=== PATIENT | female | born 1990 | race Caucasian/White ===

== ENCOUNTER 2017-09-11 15:56 | Emergency (ER) | payer MEDICAID ==
[~2017-09-11] VITALS: Ht 157.5 cm; Wt 61.8 kg
[2017-09-11 16:26] VITALS: BP 123/84; PULSE 82; RESP 16; TEMP 98.6; O2SAT 100
[2017-09-11] MEDS ORDERED: SODIUM CHLOR 0.9% 1000 ML INJ 1,000 ML IV SCH ×2 (19:29→20:15)
[2017-09-11] MEDS ORDERED: SODIUM CHLORIDE 0.9% FLUSH 10 ML FLUSH IV FLUSH PRN (19:30)
[2017-09-11 19:34] LABS: BLOOD, URINE LARGE (NEG); GLUCOSE,URINE NEG (NEG); KETONE, URINE 40 mg/dL (NEG); NITRITE,URINE NEG (NEG)
[2017-09-11 19:42] LABS: AUTOMATED NEUTROPHIL # 7.3 TH/MM3 (1.8-7.7); BASOPHIL # 0.1 TH/MM3 (0-0.2); BASOPHIL % 0.6 % (0.0-2.0); EOSINOPHIL # 0.1 TH/MM3 (0-0.4); EOSINOPHIL % 0.8 % (0.0-4.0); HEMATOCRIT 36.4 % (35.0-46.0); HEMO FLAGS DIFF FINAL; LYMPH % 15.3 % (9.0-44.0); LYMPHOCYTE # 1.4 TH/MM3 (1.0-4.8); MEAN CELL VOLUME 84.2 FL (80.0-100.0); MEAN CORPUSCULAR HEMOGLOBIN 27.7 PG (27.0-34.0); MEAN CORPUSCULAR HGB CONC 32.9 % (32.0-36.0); MONO % 3.9 % (0.0-8.0); NEUT % 79.4 % (16.0-70.0); PLATELET COUNT 219 TH/MM3 (150-450); RED BLOOD COUNT 4.33 MIL/MM3 (4.00-5.30); RED CELL DISTRIBUTION WIDTH 11.5 % (11.6-17.2); WHITE BLOOD COUNT 9.3 TH/MM3 (4.0-11.0)
[2017-09-11 19:44] LABS: METHOD OF COLLECTION VOIDED; URINE COLOR YELLOW (YELLW/STRAW)
[2017-09-11 19:45] LABS: BACTERIA, URINE RARE /hpf; COMMENT (UR) CULT NOT INDICATED; CULTURE IF INDICATED CULT NOT INDICATED; RBC, URINE 100-200 /hpf (0-3); WBC, URINE 0-2 /hpf (0-5)
[2017-09-11 19:50] LABS: CHLORIDE 104 MEQ/L (98-107); POTASSIUM 3.2 MEQ/L (3.5-5.1); SODIUM (NA) 137 MEQ/L (136-145)
[2017-09-11 19:54] LABS: ANION GAP 6 MEQ/L (5-15); BICARBONATE 26.6 MEQ/L (21.0-32.0); BLOOD UREA NITROGEN 10 MG/DL (7-18)
[2017-09-11 19:57] LABS: ALT (GPT) 19 U/L (10-53); AST (GOT) 9 U/L (15-37); GLOMERULAR FILTRATION RATE 112 ML/MIN (>89)
[2017-09-11 19:58] LABS: TOTAL BILIRUBIN ADULT 0.6 MG/DL (0.2-1.0)
[2017-09-11 19:59] LABS: ALKALINE PHOSPHATASE 64 U/L (45-117)
[2017-09-11] MEDS ORDERED: ACETAMINOPHEN 500 MG CPLT PO ONE (20:00)
[2017-09-11 20:02] LABS: BETA HCG QUANT 75 MIU/ML (0-5)
--- NOTE | 2017-09-11 22:00 | RADRPT ---
EXAM DATE/TIME: 09/11/2017 21:01 [facility] COMPARISON: No previous studies available for comparison. INDICATIONS : Pelvic bleeding and pain. LAB(S): Beta-hC MEDICAL HISTORY : . SURGICAL HISTORY : Appendectomy. ENCOUNTER: Initial ACUITY: 2 days PAIN SCORE: 7/10 LOCATION: Bilateral pelvis MEASUREMENTS: UTERUS: 8.6 x 5.0 x 4.2 cm ENDOMETRIAL STRIPE: 8 mm RIGHT OVARY: 2.7 x 2.6 x 1.9 cm LEFT OVARY: 1.6 x 1.7 x 2.2 cm FREE FLUID: Yes posterior cul de sac and bilateral adnexas FINDINGS: No definite intrauterine identified. Elongated hypoechoic area within the endometrium measu ring 1.7 x 0.3 x 1.2 cm, probably complex fluid. There is [id number] free fluid in the pelvis o f unknown etiology. No adnexal mass. CONCLUSION: 1. No intrauterine identified sonographically. Small amount of complex fluid in the endomet rial cavity. Mild to moderate free fluid in the pelvis of unknown etiology. Richie Pringle MD on September 11, 2017 at 21:55 Board Certified Radiologist. This report was verified electronically.
[2017-09-11 22:02] VITALS: BP 123/61; PULSE 86; RESP 16; O2SAT 97
--- NOTE | 2017-09-11 22:02 | PD ---
HPI Chief Complaint: Related Problem Time Seen by Provider: 19:08 Travel History International Travel<30 days: No Contact w/Intl Traveler<30days: No Traveled to known affect area: No History of Present Illness HPI Patient is a 26-year-old female presents emergency department approximately 2 to 4 weeks by last menstrual period for evaluation of vaginal spotting. Patient denies any abdominal pain nausea vomiting diarrhea vaginal discharge. States symptoms are mild but she is concerned that she might have a miscarriage. She is . No problems in her previous pregnancies. No other physical complaints at this time. PFSH Past Medical History Medical History: Denies Significant Hx Diminished Hearing: No Tetanus Vaccination: > 5 Years Influenza Vaccination: No ?: LMP: 08/12/17 : 5 Para: 4 Miscarriage: 0 : 0 Past Surgical History Appendectomy: Yes Social History Alcohol Use: No Tobacco Use: No Substance Use: No Allergies-Medications (Allergen,Severity, Reaction): Coded Allergies: No Known Allergies (Unverified , 09/11/17) Reported Meds & Prescriptions Reported Meds & Active Scripts Active No Active Prescriptions or Reported Medications Review of Systems Except as stated in HPI: all other systems reviewed are Neg Physical Exam Narrative GENERAL: Well-developed well-nourished distress SKIN: Focused skin assessment warm/dry. HEAD: Atraumatic. Normocephalic. EYES: Pupils equal and round. No scleral icterus. No injection or drainage. ENT: No nasal bleeding or discharge. Mucous membranes pink and moist. NECK: Trachea midline. No JVD. CARDIOVASCULAR: Regular rate and rhythm. No murmur appreciated. RESPIRATORY: No accessory muscle use. Clear to auscultation. Breath sounds equal bilaterally. GASTROINTESTINAL: Abdomen soft, non-tender, nondistended. Hepatic and splenic margins not palpable. Genitourinary: Exam performed with female nurse outside sales account executive present all times, scant blood in vaginal vault, cervix closed, no bimanual tenderness. No lesions seen. MUSCULOSKELETAL: No obvious deformities. No clubbing. No cyanosis. No edema. NEUROLOGICAL: Awake and alert. No obvious cranial nerve deficits. Motor grossly within normal limits. Normal speech. PSYCHIATRIC: Appropriate mood and affect; insight and judgment normal. Data Data Last Documented VS Vital Signs Date Time Temp Pulse Resp B/P (MAP) Pulse Ox O2 Delivery O2 Flow Rate FiO2 09/11/17 22:02 86 16 123/61 (81) 97 Room Air 09/11/17 16:26 98.6 Orders Orders Urinalysis - C+S If Indicated (09/11/17 19:09) Ed Urine Pregnancytest Poc (09/11/17 19:09) Beta Hcg (Quant/Titer) (09/11/17 19:29) Complete Blood Count With Diff (09/11/17 19:29) Comprehensive Metabolic Panel (09/11/17 19:29) Iv Access Insert/Monitor (09/11/17 19:29) Ecg Monitoring (09/11/17 19:29) Oximetry (09/11/17 19:29) Sodium Chloride 0.9% Flush (Ns Flush) (09/11/17 19:30) Ed Poc Ultrasound (09/11/17 19:29) Abo/Rh Blood Type (09/11/17 19:29) Acetaminophen (Tylenol) (09/11/17 20:00) Sodium Chlor 0.9% 1000 Ml Inj (Ns 1000 M (09/11/17 20:15) Us Pelvis (Ques Pr/Ect)W Trans (09/11/17 ) Ed Discharge Order (09/11/17 22:02) Labs Laboratory Tests Test 09/11/17 19:17 09/11/17 19:32 Urine Collection Type VOIDED Urine Color YELLOW Urine Turbidity HAZY Urine pH 6.0 Urine Specific [place] 1.028 Urine Protein TRACE mg/dL Urine Glucose (UA) NEG mg/dL Urine Ketones 40 mg/dL Urine Occult Blood LARGE Urine Nitrite NEG Urine Bilirubin NEG Urine Leukocyte Esterase NEG Urine RBC 100-200 /hpf Urine WBC 0-2 /hpf Urine Bacteria RARE /hpf Microscopic Urinalysis Comment CULT NOT INDICATED Urine Collection Time 1916 White Blood Count 9.3 TH/MM3 Red Blood Count 4.33 MIL/MM3 Hemoglobin 12.0 GM/DL Hematocrit 36.4 % Mean Corpuscular Volume 84.2 FL Mean Corpuscular Hemoglobin 27.7 PG Mean Corpuscular Hemoglobin Concent 32.9 % Red Cell Distribution Width 11.5 % Platelet Count 219 TH/MM3 Mean Platelet Volume 8.4 FL Neutrophils (%) (Auto) 79.4 % Lymphocytes (%) (Auto) 15.3 % Monocytes (%) (Auto) 3.9 % Eosinophils (%) (Auto) 0.8 % Basophils (%) (Auto) 0.6 % Neutrophils # (Auto) 7.3 TH/MM3 Lymphocytes # (Auto) 1.4 TH/MM3 Monocytes # (Auto) 0.4 TH/MM3 Eosinophils # (Auto) 0.1 TH/MM3 Basophils # (Auto) 0.1 TH/MM3 CBC Comment DIFF FINAL Differential Comment Blood Urea Nitrogen 10 MG/DL Creatinine 0.65 MG/DL Random Glucose 93 MG/DL Total Protein 7.9 GM/DL Albumin 4.3 GM/DL Calcium Level 8.7 MG/DL Alkaline Phosphatase 64 U/L Aspartate Amino Transf (AST/SGOT) 9 U/L Alanine Aminotransferase (ALT/SGPT) 19 U/L Total Bilirubin 0.6 MG/DL Sodium Level 137 MEQ/L Potassium Level 3.2 MEQ/L Chloride Level 104 MEQ/L Carbon Dioxide Level 26.6 MEQ/L Anion Gap 6 MEQ/L Estimat Glomerular Filtration Rate 112 ML/MIN Human Chorionic Gonadotropin, Quant 75 MIU/ML MDM Medical Decision Making Medical Screen Exam Complete: Yes Emergency Medical Condition: Yes Differential Diagnosis Vaginal bleeding and , threatened miscarriage, ectopic unlikely, Narrative Course Last 24 hours Impressions Pelvis Ultrasound 09/11/17 0000 Signed Impressions: Service Date/Time: Monday, September 11, 2017 21:01 - CONCLUSION: 1. No intrauterine identified sonographically. Small amount of complex fluid in the endometrial cavity. Mild to moderate free fluid in the pelvis of unknown etiology. Richie Pringle MD Patient roomed in emergency department, Rh+, hCG is too low to visualize at this time, she has a benign abdomen and my index suspicion for ectopic is exceedingly low. Recommended follow-up with emergency department 48 hours for repeat blood testing. Procedures Procedure Narrative With care ultrasound: Transabdominal views obtained of the uterus showing moderate free fluid in the pelvis, and no visualized . Official ultrasound is been ordered. Diagnosis Primary Impression: Vaginal bleeding affecting early Additional Instructions: Recommend return to ER in 48 hours for repeat blood work and exam. Sooner if you have pain. Scripts No Active Prescriptions or Reported Meds Disposition: 01 DISCHARGE HOME Condition: Stable Juan Garcia MD Sep 11, 2017 22:02
== END 2017-09-11 22:31 | disposition home or self-care (01) ==
LOC: PHED 15:56
DX: O46.91 Antepartum hemorrhage, unspecified, first trimester (principal); Z3A.00 Weeks of gestation of pregnancy not specified
CPT/HCPCS: 76700; 76817; 80053; 81001; 84702; 84703; 85025; 86900; 86901; 96360; 99285; J7030

== ENCOUNTER 2017-09-15 15:05 | Emergency (ER) | payer MEDICAID ==
[~2017-09-15] VITALS: Ht 157.5 cm; Wt 62.4 kg
[2017-09-15 15:10] VITALS: BP 120/56; PULSE 88; RESP 16; TEMP 98.3; O2SAT 98
--- NOTE | 2017-09-15 16:41 | PD ---
HPI Chief Complaint: Related Problem Time Seen by Provider: 16:25 Travel History International Travel<30 days: No Contact w/Intl Traveler<30days: No Traveled to known affect area: No History of Present Illness HPI 26yo F with no PMH presents to the ED for repeat bHCG. Pt was seen here at [facility] on 09/11/17 and her bHCG was 75. She had US that showed no IUP. Pt said that she no longer has any abdominal cramping or pain but is still having vaginal bleeding. Vaginal bleeding has decreased in amount. Denies any fever, chest pain, sob, n/v, abdominal pain, dysuria, vaginal discharge, focal weakness or numbness. LMP 08/11/17. Pt's blood type was O+ and rhogam was not needed. PFSH Past Medical History Diminished Hearing: No ?: : 5 Para: 4 Miscarriage: 0 : 0 Past Surgical History Appendectomy: Yes Social History Alcohol Use: No Tobacco Use: No Substance Use: No Allergies-Medications (Allergen,Severity, Reaction): Coded Allergies: No Known Allergies (Unverified , 09/15/17) Reported Meds & Prescriptions Reported Meds & Active Scripts Active No Active Prescriptions or Reported Medications Review of Systems Except as stated in HPI: all other systems reviewed are Neg Physical Exam Narrative GENERAL: 26yo F not in distress. SKIN: Focused skin assessment warm/dry. HEAD: Atraumatic. Normocephalic. CARDIOVASCULAR: Regular rate and rhythm. No murmur appreciated. RESPIRATORY: No accessory muscle use. Clear to auscultation. Breath sounds equal bilaterally. GASTROINTESTINAL: Abdomen soft, non-tender, nondistended. No rebound tenderness or guarding. PELVIC: Small amount of old blood in vaginal vault. Cervical os closed. No CMT or adnexal tenderness bilaterally. No vaginal discharge. MUSCULOSKELETAL: No obvious deformities. No clubbing. No cyanosis. No edema. NEUROLOGICAL: Awake and alert. No obvious cranial nerve deficits. Motor grossly within normal limits. Normal speech. PSYCHIATRIC: Appropriate mood and affect; insight and judgment normal. Data Data Last Documented VS Vital Signs Date Time Temp Pulse Resp B/P (MAP) Pulse Ox O2 Delivery O2 Flow Rate FiO2 09/15/17 15:10 98.3 88 16 120/56 (77) 98 Orders Orders Beta Hcg (Quant/Titer) (09/15/17 15:59) Labs Laboratory Tests Test 09/15/17 16:20 Human Chorionic Gonadotropin, Quant 43 MIU/ML MDM Medical Decision Making Medical Screen Exam Complete: Yes Emergency Medical Condition: Yes Differential Diagnosis Threatened vs. incomplete vs. complete Narrative Course 26yo F here for repeat bHCG. She was seen here on 09/11 and bHCG was 75. Today bHCG has trend down to 43. Cervical os is closed. No abdominal pain. Vital signs stable. Will have pt follow up with OBGYN as outpatient. Return precautions given. Diagnosis Primary Impression: Vaginal bleeding Patient Instructions: General Instructions Departure Forms: Tests/Procedures Additional Instructions: Please follow up with an OBGYN for repeat bHCG to see if it continues to trend down and become negative or return to the ED if symptoms worsen. Med/Other Pt SpecificInfo: No Change to Meds Scripts No Active Prescriptions or Reported Meds Disposition: 01 DISCHARGE HOME Condition: Stable Cynthia Ladd DO Sep 15, 2017 16:41
[2017-09-15 16:48] LABS: BETA HCG QUANT 43 MIU/ML (0-5)
[2017-09-15 17:45] VITALS: BP 122/71; PULSE 78; RESP 16; O2SAT 99
== END 2017-09-15 19:03 | disposition home or self-care (01) ==
LOC: PHED 15:05
DX: N93.9 Abnormal uterine and vaginal bleeding, unspecified (principal)
CPT/HCPCS: 84702; 99283

== ENCOUNTER 2017-09-28 16:05 | Emergency (ER) | payer OTHER, MEDICAID ==
[~2017-09-28] VITALS: Ht 157.5 cm; Wt 62.0 kg
[2017-09-28 16:20] VITALS: BP 160/70; PULSE 110; RESP 18; TEMP 98.8; O2SAT 99
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
[2017-09-28] MEDS ORDERED: ACETAMINOPHEN/HYDROcodone 325 MG/5 MG TAB PO ONE (17:45)
[2017-09-28 18:54] VITALS: RESP 17
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
[2017-09-28] MEDS ORDERED: CYCL10TA PO (20:52)
[2017-09-28] MEDS ORDERED: IBUP1TAB7 PO (20:52)
== END 2017-09-28 21:00 | disposition home or self-care (01) ==
LOC: PHEFT 16:05
DX: S16.1XXA Strain of muscle, fascia and tendon at neck level, initial encounter (principal); M79.1 Myalgia; R20.0 Anesthesia of skin; R20.2 Paresthesia of skin; V43.52XA Car driver injured in collision with other type car in traffic accident, initial encounter
CPT/HCPCS: 72125; 72128; 72131; 84703; 99285

== ENCOUNTER 2017-11-14 04:32 | Emergency (ER) | payer MEDICAID ==
[~2017-11-14] VITALS: Ht 157.5 cm; Wt 63.5 kg
[~2017-11-14 04:32] MED LIST: CYCL10TA PO; IBUP1TAB7 PO
[2017-11-14 04:35] VITALS: BP 107/66; PULSE 83; RESP 18; TEMP 98.2; O2SAT 96
[2017-11-14 04:47] VITALS: BP 107/66; PULSE 83; RESP 16; TEMP 98.2; O2SAT 96
[2017-11-14] MEDS ORDERED: traMADol HCL 50 MG TAB PO ONE (05:15)
[2017-11-14] MEDS ORDERED: TRAM50TA PO (06:15)
[2017-11-14] MEDS ORDERED: PENI500T PO (06:15)
--- NOTE | 2017-11-14 06:15 | PD ---
HPI Chief Complaint: Oral / Dental Pain or Problem Time Seen by Provider: 05:02 Travel History International Travel<30 days: No Contact w/Intl Traveler<30days: No Traveled to known affect area: No History of Present Illness HPI Patient is a 27-year-old female comes in complaining of tooth pain. She says for 3 days, but is getting worse. She says the right side of her head is now hurting. She is chills. She denies any difficulty swallowing. She has tried Tylenol and ibuprofen without relief of her symptoms. Severity is mild. PFSH Past Medical History Medical History: Denies Significant Hx Diminished Hearing: No Immunizations Current: Yes Influenza Vaccination: Yes ?: Not LMP: 11/12/17 : 5 Para: 4 Miscarriage: 1 : 0 Past Surgical History Appendectomy: Yes (2008) Social History Alcohol Use: No Tobacco Use: No Substance Use: No Allergies-Medications (Allergen,Severity, Reaction): Coded Allergies: No Known Allergies (Unverified , 11/14/17) Reported Meds & Prescriptions Reported Meds & Active Scripts Active Penicillin V Potassium 500 Mg Tab 500 Mg PO Q6H 7 Days Tramadol (Tramadol HCl) 50 Mg Tab 50 Mg PO Q6H PRN Review of Systems General / Constitutional: No: Fever, Chills HENT: Positive: Headaches, Dental Difficulties, No: Sore Throat Cardiovascular: No: Chest Pain or Discomfort Respiratory: No: Cough, Shortness of Breath Gastrointestinal: No: Nausea, Vomiting Musculoskeletal: No: Myalgias, Edema Skin: No Rash, No Change in Pigmentation Neurologic: No: Weakness, Dizziness Physical Exam Narrative GENERAL: Awake and alert, no acute distress. SKIN: Focused skin assessment warm/dry. HEAD: Atraumatic. Normocephalic. EYES: Pupils equal and round. No scleral icterus. ENT: Right upper molar is broken. No abscess or or drainage. Mucous membranes pink and moist. CARDIOVASCULAR: Regular rate and rhythm. No murmur appreciated. RESPIRATORY: No accessory muscle use. Clear to auscultation. Breath sounds equal bilaterally. MUSCULOSKELETAL: No obvious deformities. No clubbing. No cyanosis. No edema. NEUROLOGICAL: Awake and alert. No obvious cranial nerve deficits. Motor grossly within normal limits. Normal speech. Data Data Last Documented VS Vital Signs Date Time Temp Pulse Resp B/P (MAP) Pulse Ox O2 Delivery O2 Flow Rate FiO2 11/14/17 06:41 83 20 109/66 (80) 98 11/14/17 04:47 98.2 Orders Orders Tramadol (Ultram) (11/14/17 05:15) Ed Discharge Order (11/14/17 06:15) [facility] Medical Decision Making Medical Screen Exam Complete: Yes Emergency Medical Condition: Yes Medical Record Reviewed: Yes Differential Diagnosis Dental abscess versus broken tooth versus dental caries Narrative Course Patient is a tooth pain. Exam shows a broken tooth. Patient given tramadol for pain. Will be discharged with prescription for tramadol as well as penicillin. Advised follow-up with the dentist. Advised return to the ED as needed for any worsening symptoms. Diagnosis Primary Impression: Tooth pain Patient Instructions: General Instructions, Toothache (ED) Additional Instructions: Follow-up with the dentist. Take all of your antibiotic. Take pain medicine as needed. Return to the ED as needed for any worsening symptoms. Scripts Penicillin V Potassium (Penicillin V Potassium) 500 Mg Tab 500 MG PO Q6H for Infection for 7 Days, #28 TAB 0 Refills Prov: Maddy Rouse MD 11/14/17 Tramadol (Tramadol) 50 Mg Tab 50 MG PO Q6H Y for PAIN, #7 TAB 0 Refills Prov: Maddy Rouse MD 11/14/17 Disposition: 01 DISCHARGE HOME Condition: Stable Maddy Rouse MD Nov 14, 2017 06:15
[2017-11-14 06:41] VITALS: BP 109/66
== END 2017-11-14 06:43 | disposition home or self-care (01) ==
LOC: PHED 04:32
DX: K08.89 Other specified disorders of teeth and supporting structures (principal)
CPT/HCPCS: 99283